=== PATIENT | female | born 1990 | race African-American/Black ===

== ENCOUNTER 2019-04-29 16:40 | Emergency (ER) | payer OTHER ==
[~2019-04-29] VITALS: Ht 170.2 cm; Wt 68.0 kg
[~2019-04-29 16:40] MED LIST: DOCU-299 PO; GABA400C PO; HYDR2TAB6 PO
[2019-04-29 16:59] VITALS: BP 100/81
--- NOTE | 2019-04-29 17:39 | NUR ---
Patient ambulated to bed 7
--- NOTE | 2019-04-29 17:52 | NUR ---
C/O LRQ ABD PAIN 9/10 & SHARP/STABBING AND NAUSEA X 2DAYS. PT DENIES VOMITING/DIARRHEA. LBM 04/29/19. PT HAS HX OF CYST REMOVAL FORM OVARY, D&C X2, , LYSIS OF ADHESION. 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 PER PT, IS ALLERGIC TO MORPHINE, KETORLAC, KLYRICA AND FALGYL. ER MD TO SEE THE PT. GAVE THE URINAL TO THE PT URINE COLLECETION. WILL CONTINUE TO MONITOR PT. HX: NONE RX: NONE
--- NOTE | 2019-04-29 18:27 | NUR ---
URINE CUP GIVEN TO PT. NOT ABLE TO URIANTE YET. OFFERED MORE WATER, DENIES. INFORMED HER THAT URNINE NEEDS TO BE COLLECETED. URINE CUP AT THE BEDSIDE.
[2019-04-29 19:01] LABS: EOSINOPHILS % (AUTO) 0.9 % (0.0-4.0); HEMATOCRIT 30.9 % (36-48); HEMOGLOBIN 9.7 g/dL (12.0-16.0); LYMPHOCYTES # (AUTO) 1.2 K/uL (2.5-16.5); LYMPHOCYTES % (AUTO) 36.9 % (20.5-51.1); MEAN CORPUSCULAR HEMOGLOBIN 25 pg (27-31); MEAN CORPUSCULAR HGB CONC 32 g/dL (33-37); MEAN CORPUSCULAR VOLUME 80.1 fL (80-94); MONOCYTES # (AUTO) 0.2 K/uL (0.8-1.0); NEUTROPHILS # (AUTO) 1.8 K/uL (1.8-7.7); NEUTROPHILS % (AUTO) 56.2 % (42.2-75.2); PLATELET COUNT (AUTO) 210 K/uL (140-450); RED BLOOD CELL COUNT(AUTO) 3.86 MIL/uL (4.20-5.40); RED CELL DISTRIBUTION WIDTH 19.1 % (11.6-13.7); WHITE BLOOD COUNT (AUTO) 3.2 K/uL (4.8-10.8)
[2019-04-29 19:02] LABS: APPEARANCE,URINE CLEAR (CLEAR); BILIRUBIN,URINE NEGATIVE (NEGATIVE); BLOOD, URINE NEGATIVE (NEGATIVE); COLOR,URINE YELLOW (YELLOW); LEUKOCYTE ESTERASE ,URINE NEGATIVE (NEGATIVE); NITRITE, URINE NEGATIVE (NEGATIVE); PH,URINE 5.5 (5.0-9.0); UGLUCOSE NEGATIVE (NEGATIVE)
--- NOTE | 2019-04-29 19:19 | NUR ---
TRIED IV TWICE, UNABLE TO START IV. TEJINDER BACK AWARE.BEDSIDE GIVEN TO TEJINDER BACK. PT IN SATBLE CONDITION.
--- NOTE | 2019-04-29 19:21 | NUR ---
RECEIVED REPORT FROM TEJINDER TORRES. PT IN STABLE CONDITION AT THIS TIME, WILL CONTINUE TO MONITOR CLOSELY.
[2019-04-29 19:23] LABS: ANION GAP 13.6 (8-16); CARBON DIOXIDE 23.1 mmol/L (21-32); CREATININE 0.7 mg/dL (0.6-1.3); POTASSIUM 3.7 mmol/L (3.5-5.1)
[2019-04-29 21:37] VITALS: BP 130/72
--- NOTE | 2019-04-29 21:37 | NUR ---
DISCHARGE PAPERS GIVEN TO PT. PT STATES 10 UNRELIEVED PAIN. PT DISCHARGE INSTRUCTIONS PROVIDED VERBALLY BY DR SANTIAGO. PT VERBALLIZED UNDERSTANDING OF DC INSTRUCTIONS. ALL QUESTIONS ANSWERED.
== END 2019-04-29 17:39 | disposition home or self-care (01) ==
LOC: MED 16:40
DX: R10.2 Pelvic and perineal pain (principal); K92.1 Melena; J45.909 Unspecified asthma, uncomplicated; Z88.5 Allergy status to narcotic agent; Z88.8 Allergy status to other drugs, medicaments and biological substances; Z79.899 Other long term (current) drug therapy; Z88.1 Allergy status to other antibiotic agents
CPT/HCPCS: 36415; 76830; 80053; 81003; 81025; 85025; 99284; Q0092

== ENCOUNTER 2019-09-22 01:18 | Emergency (ER) | payer OTHER ==
[~2019-09-22] VITALS: Ht 170.2 cm; Wt 69.9 kg
[2019-09-22 01:19] VITALS: BP 126/77
--- NOTE | 2019-09-22 01:31 | NUR ---
PT WENT TO RESTROOM AND AMBULATED TO BED #8
--- NOTE | 2019-09-22 01:45 | NUR ---
29 Y/O F PRESENTS TO ED WITH C/O LT BREAST PAIN X4 MONTHS. 3 SMALL PALPABLE LUMPS NOTED. TENDER TO TOUCH. PT REPORTS HAVING PCP APPOINTMENT OCTOBER 2019. NO DRAINAGE TO LT BREAST. PT PLACED IN GOWN. BEDRAIL X1 UP. WILL CONTINUE TO MONITOR.
--- NOTE | 2019-09-22 01:53 | NUR ---
Dr. George examining patient.
--- NOTE | 2019-09-22 02:08 | NUR ---
RAD AT BEDSIDE.
--- NOTE | 2019-09-22 02:30 | NUR ---
PASTER OPERATOR AT BEDSIDE. FEMALE CHAPERONED STERLING TINEO.
[2019-09-22 03:59] VITALS: BP 115/79
--- NOTE | 2019-09-22 04:00 | NUR ---
PT SEEN WITH EYES CLOSED. AROUSABLE TO LIGHT TOUCH. PT DENIES PAIN AT THIS TIME. PT REPORTS PAIN ONLY WHEN SITE IS TOUCHED.
--- NOTE | 2019-09-22 04:53 | NUR ---
PT DISCHARGED AND PAPERWORK PROVIDED. RX OF NAPROSYN GIVEN WITH MEDICATION SIDE EFFECTS EXPLAINED. PT VERBALIZED UNDERSTANDING. PT ADVISED TO F/U WITH PCP.
== END 2019-09-22 04:53 | disposition home or self-care (01) ==
LOC: MED 01:18
DX: N63.0 Unspecified lump in unspecified breast (principal); J45.909 Unspecified asthma, uncomplicated; I10 Essential (primary) hypertension; Z98.890 Other specified postprocedural states; Z79.899 Other long term (current) drug therapy; Z88.1 Allergy status to other antibiotic agents; Z88.5 Allergy status to narcotic agent; Z88.8 Allergy status to other drugs, medicaments and biological substances
CPT/HCPCS: 71045; 76641; 81002; 81025; 99284; Q0092

== ENCOUNTER 2019-11-15 14:06 | Emergency (ER) | payer OTHER ==
[~2019-11-15] VITALS: Ht 170.2 cm; Wt 2.5 kg
[2019-11-15 14:15] VITALS: BP 119/74
--- NOTE | 2019-11-15 14:22 | NUR ---
PT TO ER BED 8
--- NOTE | 2019-11-15 14:27 | NUR ---
29 YO FEMALE CO OF UPPER ABD PAIN FOR 2D. NO V/D BUT PT DOES COMPLAIN OF NAUSEA. BS ACTIVE IN ALL QUADS. PT IS GUARDED AND ABD IS SOFT AND NON DISTENDED. PT HAS NO MED HX. PT IS CURRENTLY LAYING IN BED WITH 1X RAIL UP FOR SAFETY.
[2019-11-15] MEDS ORDERED: fentaNYL 0.05 MG/ML VIAL IVP ONE (15:00)
[2019-11-15] MEDS ORDERED: ONDANSETRON 4 MG/2 ML VIAL IVP ONE (15:00)
[2019-11-15] MEDS ORDERED: fentaNYL 0.05 MG/ML VIAL IM ONE (15:55)
--- NOTE | 2019-11-15 16:06 | NUR ---
MEDS GIVEN IM PER MD, UNABLE TO OBTAIN IV ACCESS.
[2019-11-15 16:12] LABS: BASOPHILS % (AUTO) 1.1 % (0.0-2.0); EOSINOPHILS % (AUTO) 0.6 % (0.0-4.0); HEMATOCRIT 25.7 % (36-48); HEMOGLOBIN 7.7 g/dL (12.0-16.0); LYMPHOCYTES # (AUTO) 0.8 K/uL (2.5-16.5); MEAN CORPUSCULAR HEMOGLOBIN 21 pg (27-31); MEAN CORPUSCULAR HGB CONC 30 g/dL (33-37); MEAN CORPUSCULAR VOLUME 70.9 fL (80-94); MONOCYTES # (AUTO) 0.2 K/uL (0.8-1.0); MONOCYTES % (AUTO) 6.6 % (1.7-9.3); NEUTROPHILS # (AUTO) 1.9 K/uL (1.8-7.7); NEUTROPHILS % (AUTO) 64.7 % (42.2-75.2); PLATELET COUNT (AUTO) 195 K/uL (140-450); RED BLOOD CELL COUNT(AUTO) 3.63 MIL/uL (4.20-5.40); RED CELL DISTRIBUTION WIDTH 17.3 % (11.6-13.7)
[2019-11-15 16:32] LABS: ALBUMIN 3.9 g/dL (3.4-5.0); ANION GAP 14.1 (8-16); CARBON DIOXIDE 23.7 mmol/L (21-32); CREATININE 0.6 mg/dL (0.6-1.3); POTASSIUM 3.8 mmol/L (3.5-5.1); TOTAL BILIRUBIN 0.4 mg/dL (0.0-1.0)
--- NOTE | 2019-11-15 17:21 | NUR ---
PT SITTING UPRIGHT AWAKE AND ALERT. RR EVEN AND UNLABORED. VSS.
[2019-11-15 17:38] LABS: APPEARANCE,URINE CLEAR (CLEAR); BILIRUBIN,URINE NEGATIVE (NEGATIVE); BLOOD, URINE 2+ (NEGATIVE); COLOR,URINE YELLOW (YELLOW); LEUKOCYTE ESTERASE ,URINE NEGATIVE (NEGATIVE); NITRITE, URINE NEGATIVE (NEGATIVE); UGLUCOSE NEGATIVE (NEGATIVE)
[2019-11-15 17:53] LABS: WBC,URINE 0-5 /HPF (0-5)
[2019-11-15 18:09] VITALS: BP 119/76
--- NOTE | 2019-11-15 18:10 | NUR ---
Patient discharged with v/s stable. Written and verbal after care instructions given and explained. Patient verbalized understanding. Ambulatory with steady gait. All questions addressed prior to discharge. Advised to follow up with PMD.
== END 2019-11-15 18:10 | disposition home or self-care (01) ==
LOC: MED 14:06
DX: G89.29 Other chronic pain (principal); D64.9 Anemia, unspecified; R10.31 Right lower quadrant pain; J45.909 Unspecified asthma, uncomplicated; Z98.890 Other specified postprocedural states; Z79.899 Other long term (current) drug therapy; Z88.5 Allergy status to narcotic agent; Z88.8 Allergy status to other drugs, medicaments and biological substances; Z88.1 Allergy status to other antibiotic agents
CPT/HCPCS: 36415; 80053; 81001; 81025; 85025; 96372; 96374; 99284; J2405; J3010

== ENCOUNTER 2020-04-01 00:43 | Emergency (ER) | payer OTHER ==
[~2020-04-01] VITALS: Ht 170.2 cm; Wt 72.6 kg
[2020-04-01 01:19] VITALS: BP 135/83
--- NOTE | 2020-04-01 01:27 | NUR ---
Dr. Pelayo examining patient.
[2020-04-01] MEDS ORDERED: LIDOCAINE MPF 1% 10 MG/ML VIAL INJ ONE (01:30)
--- NOTE | 2020-04-01 01:30 | NUR ---
30 Y/O FEMALE PRESENTS TO ER WITH RIGHT THUMB PAIN X 2 WEEKS, S/P BITING NAIL. 0/10 PAIN. PT STATES SHE BIT THUMB NAIL, AND SKIN WAS TORN, AND THUMB BECAME INFECTED, INFLAMED, AND PUS. DENIES SOB, COUGH, FEVER, NAUSEA, VOMITING, DIARRHEA. VSS. R/R EQUAL, AND UNLABORED. SIDE RAIL X1, BED IN LOW POSITION, WILL CONTINUE TO MONITOR. ALLERGY: FLAGYLL; LYRICA PMH: ARRYTHMIA, PULMONARY EMBOLISM
[2020-04-01] MEDS ORDERED: LIDOCAINE/EPI 1% 1:100000 20 ML VIAL INJ ONE (01:36)
--- NOTE | 2020-04-01 01:37 | NUR ---
PT TAKEN TO BED 11
[2020-04-01 01:54] VITALS: BP 135/83
--- NOTE | 2020-04-01 01:54 | NUR ---
Patient discharged BY DR. BATISTA with v/s stable. Written and verbal after care instructions given and explained. Patient alert, oriented and verbalized understanding of instructions. Ambulatory with steady gait. All questions addressed BY DR. BATISTA prior to discharge. ID band removed. Patient advised to follow up with PMD. Rx of NAPROSYN, KEFLEX given. Patient educated on indication of medication including possible reaction and side effects BY DR. BATISTA. Opportunity to ask questions provided and answered BY DR. BATISTA.
== END 2020-04-01 01:54 | disposition home or self-care (01) ==
LOC: MED 00:43
DX: L03.011 Cellulitis of right finger (principal); J45.909 Unspecified asthma, uncomplicated; Z88.5 Allergy status to narcotic agent; Z88.6 Allergy status to analgesic agent; Z88.1 Allergy status to other antibiotic agents; Z88.8 Allergy status to other drugs, medicaments and biological substances; Z79.899 Other long term (current) drug therapy
CPT/HCPCS: 99283; J2001

== ENCOUNTER 2020-07-18 12:05 | Emergency (ER) | payer OTHER ==
[~2020-07-18] VITALS: Ht 170.2 cm; Wt 72.6 kg
[2020-07-18 12:08] VITALS: BP 130/86
--- NOTE | 2020-07-18 12:20 | NUR ---
Pt c/o R lower back pain / radiating to R pelvis/R thigh starting suddenly today. Pt denies injury, dysuria, constipation. Pt states lbm was yesterday and was "normal". Pt is ambulatory with steady gait. 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
[2020-07-18 12:43] VITALS: BP 128/84
[2020-07-19] MEDS ORDERED: FERR90TA IV (22:06)
[2020-07-19] MEDS ORDERED: FENT50TD45 TD (22:06)
== END 2020-07-18 12:44 | disposition home or self-care (01) ==
LOC: MED 12:05
DX: M54.41 Lumbago with sciatica, right side (principal); F17.210 Nicotine dependence, cigarettes, uncomplicated; I49.9 Cardiac arrhythmia, unspecified; I10 Essential (primary) hypertension; J45.909 Unspecified asthma, uncomplicated; Z88.1 Allergy status to other antibiotic agents; Z90.721 Acquired absence of ovaries, unilateral; Z88.8 Allergy status to other drugs, medicaments and biological substances; Z88.6 Allergy status to analgesic agent; Z79.899 Other long term (current) drug therapy
CPT/HCPCS: 99281

== ENCOUNTER 2021-03-15 08:41 | Day surgery (SDC) | payer OTHER, SELFPAY ==
[~2021-03-15] VITALS: Ht 172.7 cm; Wt 78.5 kg
[~2021-03-15 08:41] MED LIST changes: -DOCU-299 PO; +FENT50TD45 TD; +FERR90TA IV; +MAGN400S60 PO; +NAPR-54 PO; +ONDA2SOL45 PO; +PHE25I PO
[2021-03-15 09:27] LABS: EOSINOPHILS # (AUTO) 0.1 K/uL (0-0.4); EOSINOPHILS % (AUTO) 2.1 % (0.0-4.0); HEMATOCRIT 32.9 % (36-48); HEMOGLOBIN 10.1 g/dL (12.0-16.0); LYMPHOCYTES # (AUTO) 0.9 K/uL (2.5-16.5); LYMPHOCYTES % (AUTO) 35.6 % (20.5-51.1); MEAN CORPUSCULAR HEMOGLOBIN 24 pg (27-31); MEAN CORPUSCULAR HGB CONC 31 g/dL (33-37); MONOCYTES # (AUTO) 0.2 K/uL (0.8-1.0); NEUTROPHILS # (AUTO) 1.3 K/uL (1.8-7.7); NEUTROPHILS % (AUTO) 54.3 % (42.2-75.2); PLATELET COUNT (AUTO) 229 K/uL (140-450); RED BLOOD CELL COUNT(AUTO) 4.22 MIL/uL (4.20-5.40); RED CELL DISTRIBUTION WIDTH 22.7 % (11.6-13.7); WHITE BLOOD COUNT (AUTO) 2.5 K/uL (4.8-10.8)
[2021-03-15 09:28] LABS: APPEARANCE,URINE CLEAR (CLEAR); BILIRUBIN,URINE NEGATIVE (NEGATIVE); BLOOD, URINE NEGATIVE (NEGATIVE); COLOR,URINE YELLOW (YELLOW); LEUKOCYTE ESTERASE ,URINE NEGATIVE (NEGATIVE); NITRITE, URINE NEGATIVE (NEGATIVE); UGLUCOSE NEGATIVE (NEGATIVE)
[2021-03-15 10:04] LABS: ANION GAP 17.1 (8-16); CARBON DIOXIDE 20.9 mmol/L (21-32); CREATININE 0.7 mg/dL (0.6-1.3)
[2021-03-15 10:16] LABS: ALBUMIN 3.8 g/dL (3.4-5.0)
[2021-03-15] MEDS ORDERED: BUPIVACAINE-MPF/EPI 0.25% 30 ML VIAL INJ ONE (12:25)
[2021-03-15] MEDS ORDERED: diphenhydrAMINE 50 MG/ML VIAL IVP PRN (13:50)
[2021-03-15] MEDS ORDERED: MEPERIDINE 25 MG/ML SYR IVP PRN (13:50)
[2021-03-15] MEDS ORDERED: LACTATED RINGERS 1,000 ML IV SCH (13:50)
[2021-03-15] MEDS ORDERED: oxyCODONE/APAP 5/325 MG 1 TAB TAB PO PRN (13:50)
[2021-03-15] MEDS ORDERED: ONDANSETRON 4 MG/2 ML VIAL IVP PRN (13:50)
[2021-03-15] MEDS ORDERED: DEXAMETHASONE 4 MG/ML VIAL ONE (14:51)
[2021-03-15] MEDS ORDERED: METOCLOPRAMIDE 10 MG/2 ML INJ VIAL ONE (14:51)
[2021-03-15] MEDS ORDERED: LIDOCAINE MPF 2% 100 MG/5 ML VIAL INJ ONE (14:51)
[2021-03-15] MEDS ORDERED: PROPOFOL 200 MG/20 ML VIAL IV ONE (14:51)
[2021-03-15] MEDS ORDERED: SEVOFLURANE 250 ML BTL INH ONE (14:51)
[2021-03-15] MEDS ORDERED: fentaNYL citrate 0.05 MG/ML VIAL ONE (14:51)
[2021-03-15] MEDS ORDERED: NEOSTIGMINE 1:1000 10 MG/10 ML VIAL ONE (14:51)
[2021-03-15] MEDS ORDERED: ONDANSETRON 4 MG/2 ML VIAL ONE (14:51)
[2021-03-15] MEDS ORDERED: KETOROLAC 30 MG/ML VIAL ONE (14:51)
[2021-03-15] MEDS ORDERED: MEPERIDINE 25 MG/ML SYR ONE (14:51)
[2021-03-15] MEDS ORDERED: ROCURONIUM 50 MG/5 ML VIAL IV ONE (14:51)
[2021-03-15] MEDS ORDERED: SUCCINYLCHOLINE CHLORIDE 200 MG/10 ML VIAL IVP ONE (14:51)
[2021-03-15] MEDS ORDERED: GLYCOPYRROLATE 0.2 MG/ML VIAL ONE (14:51)
[2021-03-15] MEDS ORDERED: LORazepam 2 MG/ML VIAL IVP PRN (16:00)
[2021-03-15] MEDS: fentaNYL citrate 0.05 MG/ML VIAL IVP PRN ×4 (16:08→16:38)
[2021-03-15] MEDS ORDERED: diphenhydrAMINE 50 MG/ML VIAL IVP ONE (16:50)
[2021-03-15] MEDS ORDERED: diphenhydrAMINE 50 MG/ML VIAL IVP SCH (16:53)
--- NOTE | 2021-03-15 17:00 | NUR ---
Patient transferred to room 106A. Received report from OR nurse Theresa.
--- NOTE | 2021-03-15 17:55 | NUR ---
Patient discharged at this time. Left hand IV 24G discontinued, cannula intact, site covered with dry gauze and tape. All belongings with patient upon departure. Patient's waiting in front lobby with private transport.
== END 2021-03-15 17:55 | disposition home or self-care (01) ==
LOC: MDS 08:41 → MMU 08:41 → MDS 17:55
PROVIDERS: ATTEND Obstetrics & Gynecology
DX: N80.3 Endometriosis of pelvic peritoneum (principal); Z88.8 Allergy status to other drugs, medicaments and biological substances; Z79.899 Other long term (current) drug therapy; Z20.822 Contact with and (suspected) exposure to COVID-19
CPT/HCPCS: 36415; 58662; 80053; 81003; 81025; 85025; 86886; 86900; 86901; 87086; J0330; J1100; J1200; J1885; J2001; J2060; J2175; J2405; J2704; J2710; J2765; J3010; J3490; J7030; J7120; U0003

== ENCOUNTER 2021-05-08 09:52 | Emergency (ER) | payer OTHER, SELFPAY ==
[~2021-05-08] VITALS: Ht 172.7 cm; Wt 78.9 kg
[2021-05-08 10:10] VITALS: BP 133/100
--- NOTE | 2021-05-08 11:00 | NUR ---
Patient ambulated to bed 4 with a steady gait.
--- NOTE | 2021-05-08 11:08 | NUR ---
dr. zhong bedside evaluating pt
[2021-05-08] MEDS ORDERED: KETOROLAC 30 MG/ML VIAL IVP ONE (11:15)
--- NOTE | 2021-05-08 11:15 | NUR ---
31 Y/O F BIB UBER FROM HOME, C/O ABD PAIN BILATERAL LOWER QUADRANTS FOR 3 DAYS. DENIES N/V/D, SOB, COUGH, FEVERS, OR CP. DENIES DYSURIA, HEMATURIA. LAST BM: THIS MORNING, SOFT AND EASY TO PASS. PMH: ENDOMETRIOSIS ALLERGY: METRONIDAZOLE, PREGABLIN (HIVES) MED: DENIES
--- NOTE | 2021-05-08 11:43 | NUR ---
ELECTRONICS HARDWARE DESIGN ENGINEER ZULEMA BEDSIDE COLLECTING BLOOD WORK FROM PT
[2021-05-08] MEDS ORDERED: KETOROLAC 60 MG/2 ML VIAL IM ONE (12:00)
--- NOTE | 2021-05-08 12:20 | NUR ---
US CURRENTLY BEDSIDE WITH PT
[2021-05-08 12:48] LABS: BASOPHILS % (AUTO) 0.1 % (0.0-2.0); HEMATOCRIT 37.3 % (36-48); HEMOGLOBIN 11.9 g/dL (12.0-16.0); LYMPHOCYTES # (AUTO) 1.1 K/uL (2.5-16.5); LYMPHOCYTES % (AUTO) 14.7 % (20.5-51.1); MEAN CORPUSCULAR HEMOGLOBIN 26 pg (27-31); MEAN CORPUSCULAR HGB CONC 32 g/dL (33-37); MEAN CORPUSCULAR VOLUME 82.5 fL (80-94); MONOCYTES # (AUTO) 0.3 K/uL (0.8-1.0); MONOCYTES % (AUTO) 3.8 % (1.7-9.3); NEUTROPHILS # (AUTO) 6.3 K/uL (1.8-7.7); NEUTROPHILS % (AUTO) 81.4 % (42.2-75.2); PLATELET COUNT (AUTO) 263 K/uL (140-450); RED BLOOD CELL COUNT(AUTO) 4.53 MIL/uL (4.20-5.40); WHITE BLOOD COUNT (AUTO) 7.7 K/uL (4.8-10.8)
[2021-05-08 12:52] LABS: ALBUMIN 3.7 g/dL (3.4-5.0); ANION GAP 11.8 (8-16); CARBON DIOXIDE 24.8 mmol/L (21-32); CREATININE 0.7 mg/dL (0.6-1.3); POTASSIUM 3.6 mmol/L (3.5-5.1); TOTAL BILIRUBIN 0.6 mg/dL (0.0-1.0)
[2021-05-08] MEDS ORDERED: MORPHINE SULFATE 10 MG/ML VIAL IM ONE (13:10)
[2021-05-08] MEDS ORDERED: ONDANSETRON 4 MG ODT PO ONE (13:10)
--- NOTE | 2021-05-08 14:21 | NUR ---
PT CURRENTLY IN POSITION DUE TO PAIN. BED IN LOWEST POSITION CURRENTLY WITH SIDERAIL X1 UP. VITAL SIGNS STABLE. WILL CONTINUE TO MONITOR
--- NOTE | 2021-05-08 14:42 | NUR ---
Dr. Yoo at the bedside evaluating patient.
--- NOTE | 2021-05-08 14:44 | NUR ---
Max elder in [facility] - 05/08/21 at [email or web address] HUGGINS BEDSIDE EVALUATING PT
[2021-05-08] MEDS ORDERED: HYDROmorphone PFS 2 MG/ML SYR IVP ONE (14:50)
--- NOTE | 2021-05-08 15:15 | NUR ---
PT GIVEN 4 HOTPACKS TO HELP WITH ABDOMINAL PAIN
--- NOTE | 2021-05-08 16:23 | NUR ---
PT CURRENTLY IN POSITION DUE TO PAIN 07/14. HOT PACKS PROVIDED NO RELIEF TO PT. VITAL SIGNS STABLE. BED IN LOWEST POSITION WITH SIDERAIL X1 UP. PT ON MONITOR. MD MADE AWARE OF PT CURRENT STATUS
[2021-05-08] MEDS ORDERED: MORPHINE SULFATE 4 MG/ML SYR IVP ONE (17:00)
[2021-05-08] MEDS ORDERED: LORazepam 1 MG TAB PO ONE (17:00)
[2021-05-08] MEDS ORDERED: KETAMINE 10 MG/ML UD SYR **ER IVP ONE (17:45)
[2021-05-08] MEDS ORDERED: HALOPERIDOL IM 5 MG/ML VIAL IVP ONE (17:55)
--- NOTE | 2021-05-08 18:06 | NUR ---
PT IV NO LONGER ABLE TO BE USED. PA WOMACK BEDSIDE WITH UA ATTEMPTING ANOTHER IV
--- NOTE | 2021-05-08 18:30 | NUR ---
PT CURRENTLY RESTING ON SIDE CRYING FROM PAIN. VITAL SIGNS ARE CURRENTLY STABLE AND PAIN MEDICATION HAS BEEN GIVEN. BED IN LOWEST POSITION WITH SIDERAIL X1 UP. WILL CONTINUE TO MONITOR
--- NOTE | 2021-05-08 18:52 | NUR ---
PT CURRENTLY SLEEPING BEDSIDE WITH EYES CLOSED
--- NOTE | 2021-05-08 19:33 | NUR ---
Pt report given to TEJINDER WOODSON. Transfer of care at this time.
--- NOTE | 2021-05-08 19:49 | NUR ---
PT. IN BALL POSITION LAYING COMFORTABLY IN BED, VOICES NO COMPLAINTS AT THIS TIME.
[2021-05-08] MEDS ORDERED: OXYC1TAB PO (20:05)
[2021-05-08 21:11] VITALS: BP 134/97
== END 2021-05-08 21:11 | disposition home or self-care (01) ==
LOC: MED 09:52
DX: N80.9 Endometriosis, unspecified (principal); R10.9 Unspecified abdominal pain; R11.0 Nausea; J45.909 Unspecified asthma, uncomplicated; I10 Essential (primary) hypertension; Z87.442 Personal history of urinary calculi; Z98.890 Other specified postprocedural states; Z79.899 Other long term (current) drug therapy; Z88.8 Allergy status to other drugs, medicaments and biological substances
CPT/HCPCS: 36415; 74176; 76830; 80053; 81002; 81025; 85025; 93976; 96372; 96374; 96375; 99285; J1170; J1630; J1885; J2270; Q0162

== ENCOUNTER 2021-12-09 05:46 | Day surgery (SDC) | payer OTHER ==
[~2021-12-09] VITALS: Ht 172.7 cm; Wt 80.3 kg
[2021-12-09] MEDS ORDERED: BUPIVACAINE-MPF 0.25% 30 ML VIAL INJ ONE (07:18)
[2021-12-09] MEDS ORDERED: fentaNYL citrate 0.05 MG/ML VIAL ONE (07:21)
[2021-12-09] MEDS ORDERED: PROPOFOL 200 MG/20 ML VIAL IV ONE (07:25)
[2021-12-09] MEDS ORDERED: SEVOFLURANE 250 ML BTL INH ONE (07:45)
[2021-12-09] MEDS ORDERED: ONDANSETRON 4 MG/2 ML VIAL ONE (08:01)
[2021-12-09] MEDS ORDERED: DEXAMETHASONE 4 MG/ML VIAL ONE (08:01)
[2021-12-09] MEDS ORDERED: MEPERIDINE 50 MG/ML SYR ONE (08:03)
[2021-12-09] MEDS ORDERED: diphenhydrAMINE 50 MG/ML VIAL IVP PRN ×2 (08:35→08:45)
[2021-12-09] MEDS ORDERED: ONDANSETRON 4 MG/2 ML VIAL IVP PRN ×2 (08:35→08:45)
[2021-12-09] MEDS ORDERED: oxyCODONE/APAP 5/325 MG 1 TAB TAB PO PRN (08:35)
[2021-12-09] MEDS ORDERED: MEPERIDINE 25 MG/ML SYR IVP PRN (08:45)
[2021-12-09] MEDS ORDERED: LACTATED RINGERS 1,000 ML IV SCH (08:45)
[2021-12-09] MEDS: HYDROmorphone 1 MG/ML AMP IVP PRN ×4 (09:10→09:40)
[2021-12-09] MEDS ORDERED: HYDROmorphone PFS 2 MG/ML SYR ONE (09:14)
[2021-12-09] MEDS ORDERED: oxyCODONE/APAP 5/325 MG 1 TAB TAB PO ONE (10:19)
== END 2021-12-09 11:35 | disposition home or self-care (01) ==
LOC: MDS 05:46 → MMU 05:48 → MDS 11:35
PROVIDERS: ATTEND Obstetrics & Gynecology
DX: N93.9 Abnormal uterine and vaginal bleeding, unspecified (principal); D25.9 Leiomyoma of uterus, unspecified; Z20.822 Contact with and (suspected) exposure to COVID-19
CPT/HCPCS: 36415; 58558; 86886; 86900; 86901; 87426; J1100; J1170; J2175; J2405; J2704; J3010; J3490

== ENCOUNTER 2023-03-19 15:59 | Inpatient (IN) | payer OTHER ==
[~2023-03-19] VITALS: Ht 172.7 cm; Wt 79.8 kg
[2023-03-19] VITALS (7 sets, daily range): BP systolic 142–143; BP diastolic 89–105; PULSE 75–83; RESP 15–20; TEMP 97–97.1; O2SAT 97–100
--- NOTE | 2023-03-19 16:29 | NUR ---
PT AMB TO BED 9
[2023-03-19 16:45] LABS: APPEARANCE,URINE CLEAR (CLEAR); BILIRUBIN,URINE NEGATIVE (NEGATIVE); BLOOD, URINE 3+ (NEGATIVE); COLOR,URINE YELLOW (YELLOW); LEUKOCYTE ESTERASE ,URINE NEGATIVE (NEGATIVE); NITRITE, URINE NEGATIVE (NEGATIVE); PH,URINE 8.5 (5.0-9.0); UGLUCOSE NEGATIVE (NEGATIVE)
--- NOTE | 2023-03-19 16:45 | NUR ---
33YO FEMALE PT C/O VAGINAL BLEEDING AND STABBING PELVIC PAIN X2DAYS. REPORTS HEAVY FLOW "TOO MANY PADS TOO COUNT" DENIES CLOTS. STATES BEING RECOMMENDED BY OBGYN TO COME TO ER , UNABLE TO RECALL REASON "HE SAID I NEEDED EMERGENCY SURGERY ". DENIES N/V/D, DIZZINESS,CHEST PAIN, SOB OR RELIEF AFTER MOTRIN. PT AAOX4, HOB POSITIONED PER COMFORT HX:DENIES ALLERGIES: ANA RUDOLPH
--- NOTE | 2023-03-19 16:45 | NUR ---
us at bedside
[2023-03-19 17:01] LABS: BASOPHILS % (AUTO) 1.1 % (0.0-2.0); EOSINOPHILS # (AUTO) 0.1 K/uL (0-0.4); EOSINOPHILS % (AUTO) 4.4 % (0.0-4.0); HEMATOCRIT 34.1 % (36-48); HEMOGLOBIN 11.4 g/dL (12.0-16.0); LYMPHOCYTES # (AUTO) 1.6 K/uL (2.5-16.5); LYMPHOCYTES % (AUTO) 48.3 % (20.5-51.1); MEAN CORPUSCULAR HEMOGLOBIN 30 pg (27-31); MEAN CORPUSCULAR HGB CONC 33 g/dL (33-37); MEAN CORPUSCULAR VOLUME 89.8 fL (80-94); MONOCYTES # (AUTO) 0.2 K/uL (0.8-1.0); MONOCYTES % (AUTO) 7.2 % (1.7-9.3); NEUTROPHILS # (AUTO) 1.3 K/uL (1.8-7.7); PLATELET COUNT (AUTO) 174 K/uL (140-450); RED CELL DISTRIBUTION WIDTH 14.9 % (11.6-13.7); WHITE BLOOD COUNT (AUTO) 3.3 K/uL (4.8-10.8)
[2023-03-19 17:03] LABS: RBC,URINE 20-50 /HPF (0-5); RED BLOOD CELL CASTS,URINE 0-10 /LPF (None Seen); URINE AMORPHOUS URATE 3+ /HPF (None Seen); YEAST,URINE None Seen /HPF (None Seen)
[2023-03-19 17:28] LABS: ANION GAP 10.8 (8-16); CARBON DIOXIDE 26.5 mmol/L (21-32); CREATININE 0.6 mg/dL (0.6-1.3); POTASSIUM 4.3 mmol/L (3.5-5.1)
[2023-03-19 17:32] LABS: PROTHROMBIN TIME 10.9 secs (10.8-13.4)
[2023-03-19] MEDS ORDERED: KETOROLAC 30 MG/ML VIAL IVP ONE (18:30)
[2023-03-19] MEDS ORDERED: NACL 0.9% 1,000 ML IV ONE (18:30)
[2023-03-19] MEDS ORDERED: ESTROGENS CONJUGATED 25 MG INJ VIAL IVP ONE (18:30)
--- NOTE | 2023-03-19 19:00 | NUR ---
UNSUCCESSFUL US GUIDED IV BY RN. MADE AWARE.
--- NOTE | 2023-03-19 19:17 | NUR ---
REPORT GIVEN TO PAOLA RN. TRANSFER OF CARE AT THIS TIME
--- NOTE | 2023-03-19 19:43 | NUR ---
attempted to start IV lines twice. unsuccesful at this time. per pt does not want medications unless it's through IV. ER made aware.
--- NOTE | 2023-03-19 19:52 | NUR ---
Dr. Barksdale at bedside
[2023-03-19] MEDS ORDERED: KCL 20 MEQ IN 100 mL PREMIX 200 ML IV PRN (20:25)
[2023-03-19] MEDS ORDERED: POTASSIUM CHLORIDE 10 MEQ TABER PO PRN (20:25)
[2023-03-19] MEDS ORDERED: HYDROcodone/APAP 5/325 MG 1 TAB TAB PO PRN (20:25)
[2023-03-19] MEDS ORDERED: ACETAMINOPHEN 325 MG TAB PO PRN (20:25)
[2023-03-19] MEDS ORDERED: MAGNESIUM OXIDE 400 MG TAB PO PRN (20:25)
--- NOTE | 2023-03-19 21:57 | NUR ---
RIVKA r Addendum: 03/19/23 at 2251 by [email or web address] 21:57 RIVKA PIC LINE RN WILL ARRIVE BEFORE OR A LITTLE AFTER MIDNIGHT. PT MADE AWARE AND RN MADE AWARE
--- NOTE | 2023-03-19 22:36 | NUR ---
Patient will be admitted to care of Molly PALM. Admited to Med/Surg. Will go to room 119a. Belongings list completed. Report to Mai MARR.
[2023-03-20] MEDS ORDERED: KETOROLAC 30 MG/ML VIAL ONE (01:15)
[2023-03-20] MEDS ORDERED: ESTROGENS CONJUGATED 25 MG INJ VIAL ONE (01:18)
[2023-03-20] MEDS ORDERED: WATER STERILE 10 ML MC ONE (01:35)
[2023-03-20] MEDS: MORPHINE SULFATE 2 MG/ML SYR IVP PRN ×4 (03:07→17:57)
[2023-03-20 04:00] VITALS: BP 125/86; PULSE 72; RESP 18; TEMP 97.9; O2SAT 100
[2023-03-20 05:37] LABS: BASOPHILS % (AUTO) 0.7 % (0.0-2.0); EOSINOPHILS # (AUTO) 0.1 K/uL (0-0.4); EOSINOPHILS % (AUTO) 3.9 % (0.0-4.0); HEMATOCRIT 32.1 % (36-48); HEMOGLOBIN 10.5 g/dL (12.0-16.0); LYMPHOCYTES # (AUTO) 1.5 K/uL (2.5-16.5); LYMPHOCYTES % (AUTO) 54.7 % (20.5-51.1); MEAN CORPUSCULAR HEMOGLOBIN 30 pg (27-31); MEAN CORPUSCULAR HGB CONC 33 g/dL (33-37); MEAN CORPUSCULAR VOLUME 90.3 fL (80-94); MONOCYTES # (AUTO) 0.2 K/uL (0.8-1.0); MONOCYTES % (AUTO) 6.4 % (1.7-9.3); NEUTROPHILS # (AUTO) 0.9 K/uL (1.8-7.7); NEUTROPHILS % (AUTO) 34.3 % (42.2-75.2); PLATELET COUNT (AUTO) 166 K/uL (140-450); RED BLOOD CELL COUNT(AUTO) 3.56 MIL/uL (4.20-5.40); RED CELL DISTRIBUTION WIDTH 14.9 % (11.6-13.7); WHITE BLOOD COUNT (AUTO) 2.8 K/uL (4.8-10.8)
--- NOTE | 2023-03-20 07:26 | NUR ---
RECEIVED REPORT FROM INVESTIGATION DIVISION SERGEANT NURSE FOR CONTINUITY OF CARE. PT IS AWAKE, NO SIGN OF DISTRESS. CALL LIGHT WITHIN REACH.
[2023-03-20 08:00] VITALS: PULSE 68; RESP 18; O2SAT 100
[2023-03-20 09:01] LABS: ALBUMIN 3.2 g/dL (3.4-5.0); ANION GAP 13.8 (8-16); CARBON DIOXIDE 23.8 mmol/L (21-32); CREATININE 0.6 mg/dL (0.6-1.3); MAGNESIUM 1.8 mg/dL (1.8-2.4); POTASSIUM 3.6 mmol/L (3.5-5.1); TOTAL BILIRUBIN 0.8 mg/dL (0.0-1.0)
--- NOTE | 2023-03-20 09:05 | NUR ---
PATIENT HAS BEEN SCREENED AND CATEGORIZED LOW NUTRITION RISK. PATIENT WILL BE SEEN WITHIN 7 DAYS OF ADMISSION. 03/26/[address]
[2023-03-20 16:00] VITALS: BP 126/80; PULSE 70; RESP 18; TEMP 98.4; O2SAT 100
--- NOTE | 2023-03-20 19:15 | NUR ---
ENDORSED PT TO BATTERYMAN NURSE FOR CONTINUITY OF CARE. PT IS AWAKE AND STABLE, NO SIGNS OF DISTRESS. CALL LIGHT WITHIN REACH.
[2023-03-20 20:00] VITALS: BP 134/90; PULSE 82; RESP 18; TEMP 97.6; O2SAT 99
--- NOTE | 2023-03-20 20:45 | NUR ---
PATIENT COMPLAINED OF SEVERE ABDOMINAL PAIN RADIATING AT THE BACK. PATIENT IS REQUESTING A STRONGER PAIN MEDS. PER PATIENT MORPHINE 2 MG IS NOT WORKING. NOTIFIED DR. JACKMAN WITH ORDERS NOTED CARRIED OUT.
--- NOTE | 2023-03-20 21:08 | NUR ---
PATIENT STILL WITH VAGINAL BLEEDING. DR. JACKMAN MADE AWARE. INFORMED PATIENT TO WAIT FOR DR. TOLEDO TO SEE HER.
[2023-03-20] MEDS: MORPHINE SULFATE 4 MG/ML SYR IVP PRN (22:16)
[2023-03-21] MEDS: oxyCODONE/APAP 5/325 MG 1 TAB TAB PO PRN ×3 (01:24→20:21)
[2023-03-21 04:00] VITALS: BP 122/76; PULSE 78; RESP 18; TEMP 97.2; O2SAT 99
[2023-03-21 07:15] LABS: BASOPHILS % (AUTO) 0.5 % (0.0-2.0); EOSINOPHILS # (AUTO) 0.1 K/uL (0-0.4); EOSINOPHILS % (AUTO) 1.5 % (0.0-4.0); HEMATOCRIT 31.2 % (36-48); HEMOGLOBIN 10.5 g/dL (12.0-16.0); LYMPHOCYTES % (AUTO) 26.7 % (20.5-51.1); MEAN CORPUSCULAR HEMOGLOBIN 30 pg (27-31); MEAN CORPUSCULAR HGB CONC 34 g/dL (33-37); MEAN CORPUSCULAR VOLUME 90.2 fL (80-94); MONOCYTES # (AUTO) 0.2 K/uL (0.8-1.0); MONOCYTES % (AUTO) 4.2 % (1.7-9.3); NEUTROPHILS # (AUTO) 2.5 K/uL (1.8-7.7); NEUTROPHILS % (AUTO) 67.1 % (42.2-75.2); PLATELET COUNT (AUTO) 144 K/uL (140-450); RED BLOOD CELL COUNT(AUTO) 3.46 MIL/uL (4.20-5.40); RED CELL DISTRIBUTION WIDTH 14.7 % (11.6-13.7); WHITE BLOOD COUNT (AUTO) 3.7 K/uL (4.8-10.8)
--- NOTE | 2023-03-21 07:15 | NUR ---
RECIEVED REPORT FROM PREPLEATER NURSE FOR CONTINUITY OF CARE. PT IS STABLE. CALL LIGHT WITHIN REACH.
[2023-03-21 07:28] LABS: ALBUMIN 2.9 g/dL (3.4-5.0); ANION GAP 11.8 (8-16); CARBON DIOXIDE 25.8 mmol/L (21-32); CREATININE 0.7 mg/dL (0.6-1.3); MAGNESIUM 1.5 mg/dL (1.8-2.4); POTASSIUM 3.6 mmol/L (3.5-5.1); TOTAL BILIRUBIN 0.8 mg/dL (0.0-1.0)
[2023-03-21 08:00] VITALS: PULSE 77; RESP 17; O2SAT 99
[2023-03-21] MEDS: MORPHINE SULFATE 4 MG/ML SYR IVP PRN ×3 (08:36→22:12)
[2023-03-21] MEDS: MAG SULF 2000 MG/WATER PREMIX 50 ML IV PRN (08:55)
[2023-03-21] MEDS: medroxyPROGESTERone 10 MG TAB PO SCH (11:43)
[2023-03-21] MEDS: ESTROGENS CONJUGATED 25 MG INJ VIAL IV SCH (12:00)
--- NOTE | 2023-03-21 19:31 | NUR ---
ENDORSED TO HOT DIE PRESS FEEDER NURSE FOR CONTINUITY OF CARE. PT IS STABLE. CALL LIGHT WITHIN REACH.
[2023-03-21 20:00] VITALS: BP 111/70; PULSE 85; RESP 18; TEMP 98.1; O2SAT 95
[2023-03-21 20:02] VITALS: PULSE 77; RESP 17; O2SAT 99
--- NOTE | 2023-03-21 20:21 | NUR ---
PATIENT COMPLAINING OF 8/10 PAIN IN PELVIC REGION. PERCOCET PO ADMINISTERED PRN PER MD ORDER, PT TOLERATED WELL. WILL REASSESS PAIN LEVEL IN ONE HOUR.
--- NOTE | 2023-03-21 20:28 | NUR ---
Patient's Plan of Care was discussed and reviewed with ADOLESCENT SPECIALIST: JAY
--- NOTE | 2023-03-21 21:21 | NUR ---
PT STILL COMPLAINING OF 8/10 PAIN UPON REASSESSMENT. INSTRUCTED PATIENT TO REPOSITION IN A POSITION TO HELP REDUCE PAIN. WILL CONTINUE TO MONITOR THE PATIENT.
[2023-03-22] MEDS: oxyCODONE/APAP 5/325 MG 1 TAB TAB PO PRN ×4 (02:25→21:58)
--- NOTE | 2023-03-22 02:26 | NUR ---
PT COMPLAINING OF 9/10 PAIN IN PELVIC REGION. ADMINISTERED PERCOCET PRN PER MD ORDER, WILL REASSESS PAIN LEVEL IN ONE HOUR.
--- NOTE | 2023-03-22 03:48 | NUR ---
PT WITH A TEMPERATURE OF 100.8. TYLENOL ADMINISTERED PRN FOR FEVER, WILL CLOSELY MONITOR THE PT.
[2023-03-22 04:00] VITALS: BP 101/61; PULSE 73; RESP 18; TEMP 100.8; O2SAT 97
--- NOTE | 2023-03-22 05:43 | NUR ---
REASSESSED PATIENTS TEMPERATURE. CURRENT TEMPERATURE IS 97.5. WILL CONTINUE MONITORING THE PATIENT.
[2023-03-22 07:02] LABS: BASOPHILS % (AUTO) 0.1 % (0.0-2.0); EOSINOPHILS % (AUTO) 0.1 % (0.0-4.0); HEMATOCRIT 31.5 % (36-48); HEMOGLOBIN 10.6 g/dL (12.0-16.0); LYMPHOCYTES # (AUTO) 0.2 K/uL (2.5-16.5); MEAN CORPUSCULAR HEMOGLOBIN 30 pg (27-31); MEAN CORPUSCULAR HGB CONC 34 g/dL (33-37); MEAN CORPUSCULAR VOLUME 88.9 fL (80-94); MONOCYTES # (AUTO) 0.1 K/uL (0.8-1.0); MONOCYTES % (AUTO) 3.3 % (1.7-9.3); NEUTROPHILS # (AUTO) 3.6 K/uL (1.8-7.7); PLATELET COUNT (AUTO) 108 K/uL (140-450); RED BLOOD CELL COUNT(AUTO) 3.54 MIL/uL (4.20-5.40); RED CELL DISTRIBUTION WIDTH 14.8 % (11.6-13.7); WHITE BLOOD COUNT (AUTO) 3.9 K/uL (4.8-10.8)
--- NOTE | 2023-03-22 07:20 | NUR ---
RECEIVED REPORT FROM CDL FLATBED TRUCK DRIVER FOR CONTINUITY OF CARE. ALERT AND ORIENTED X 4. RESP. EVEN AND UNLABORED. ON ROOM AIR. NO C/O PAIN OR DISCOMFORT. CALL LIGHT KEPT WITHIN REACH. PT WILL MONITOR CLOSELY.
--- NOTE | 2023-03-22 07:27 | NUR ---
PT REPORTING A PAIN LEVEL OF 2/10 AT THIS TIME. ENDORSED TO DAY SHIFT NURSE FOR CONTINUITY OF CARE.
[2023-03-22 07:29] LABS: ALBUMIN 2.9 g/dL (3.4-5.0); ANION GAP 11.6 (8-16); CARBON DIOXIDE 23.8 mmol/L (21-32); CREATININE 0.7 mg/dL (0.6-1.3); MAGNESIUM 1.4 mg/dL (1.8-2.4); POTASSIUM 3.4 mmol/L (3.5-5.1); TOTAL BILIRUBIN 1.2 mg/dL (0.0-1.0)
[2023-03-22 07:37] LABS: LYMPHOCYTES % (AUTO) 4.9 % (20.5-51.1); NEUTROPHILS % (AUTO) 91.6 % (42.2-75.2)
[2023-03-22 08:00] VITALS: BP 99/63; PULSE 75; PULSE 90; RESP 18; RESP 19; TEMP 97.5; O2SAT 97; O2SAT 99
--- NOTE | 2023-03-22 08:00 | NUR ---
Patient's Plan of Care was discussed and reviewed with SOFTWARE COMPUTER SPECIALIST: Vanessa
--- NOTE | 2023-03-22 09:20 | NUR ---
PRN K DUR WAS GIVEN. TOLERATED WELL.
[2023-03-22] MEDS: medroxyPROGESTERone 10 MG TAB PO SCH (09:21)
--- NOTE | 2023-03-22 09:26 | NUR ---
SCHEDULED MEDICATIONS AND PRN PERCOCET FOR PAIN MANAGEMENT WAS GIVEN. TOLERATED WELL.
[2023-03-22] MEDS: ESTROGENS CONJUGATED 25 MG INJ VIAL IV SCH (10:19)
--- NOTE | 2023-03-22 10:20 | NUR ---
PREMARIN IVP AND ROCEPHIN IV WAS GIVEN BY HAYDEN MARR. TOLERATED WELL.
[2023-03-22] MEDS: MAG SULF 2000 MG/WATER PREMIX 50 ML IV PRN (12:54)
--- NOTE | 2023-03-22 12:54 | NUR ---
MAG DESAIER WAS GIVEN BY HAYDEN MARR. TOLERATED WELL.
[2023-03-22] MEDS: ONDANSETRON 4 MG/2 ML VIAL IVP PRN ×2 (13:43→22:08)
--- NOTE | 2023-03-22 13:43 | NUR ---
NOTED VOMITING 1X, PRN ZOFRAN IVP GIVEN BY JOHNSON MARR. TOLERATED WELL.
--- NOTE | 2023-03-22 14:40 | NUR ---
URINE COLLECTED. SEND TO LAB.
[2023-03-22 15:13] LABS: APPEARANCE,URINE CLEAR (CLEAR); BILIRUBIN,URINE 1+ (NEGATIVE); BLOOD, URINE NEGATIVE (NEGATIVE); COLOR,URINE YELLOW (YELLOW); LEUKOCYTE ESTERASE ,URINE NEGATIVE (NEGATIVE); NITRITE, URINE NEGATIVE (NEGATIVE); PH,URINE 6.5 (5.0-9.0); UGLUCOSE TRACE (NEGATIVE)
--- NOTE | 2023-03-22 18:00 | NUR ---
DINNER SERVED. PER PT STILL NOTED BLEEDING WHEN SHE VOIDED. PT WILL MONITOR CLOSELY.
--- NOTE | 2023-03-22 19:17 | NUR ---
BEDSIDE REPORT GIVEN TO SUPERVISOR TANK STORAGE FOR CONTINUITY OF CARE. REMAINS STABLE.
--- NOTE | 2023-03-22 19:31 | NUR ---
RECEIVED REPORT FROM DAY SHIFT NURSE FOR CONTINUITY OF CARE. PATIENT IS AWAKE, STATES NO PAIN AT THIS TIME. STILL STABLE ON ROOM AIR SATING AT 99%. DISCUSSED POC AND GOALS FOR TONIGHT. PT VERBALIZED UNDERSTANDING TO USE CALL LIGHT FOR ANY ASSISTANCE NEEDED. WILL MAKE FREQUENT ROUNDS THROUGHOUT SHIFT.
[2023-03-22 20:00] VITALS: BP 99/62; PULSE 90; RESP 18; RESP 19; TEMP 97; O2SAT 99
--- NOTE | 2023-03-22 21:58 | NUR ---
PATIENT STATES A PAIN LEVEL OF 8/10 IN PELVIC REGION. INSTRUCTED PATIENT TO REPOSITION IN A POSITION AND FLEX HER ABDOMEN. PATIENT STATED THIS ONLY RELIEVES THE PAIN A SMALL AMOUNT. ADMINISTERED PERCOCET 5/325 MG PO PRN TO PATIENT FOR A PAIN LEVEL OF 8/10. PT TOLERATED WELL. PT ALSO REQUESTED ZOFRAN SHE WAS EXPERIENCING SOME NAUSEA. ZOFRAN WAS ADMINISTERED BY CHARGE NURSE: PEGGY. WILL REASSESS PATIENTS PAIN LEVEL IN ONE HOUR.
--- NOTE | 2023-03-22 22:17 | NUR ---
Patient's Plan of Care was discussed and reviewed with BASKET PERSON: SHERRI VALVERDE
--- NOTE | 2023-03-22 22:58 | NUR ---
REASSESSED PATIENTS PAIN LEVEL. PATIENT SLEEPING AT THIS TIME. NO GRIMACING OR SIGNS OF DISTRESS/DISCOMFORT NOTED. FLACC SCORE = 0. WILL CONTINUE FREQUENT ROUNDING.
--- NOTE | 2023-03-23 02:30 | NUR ---
PATIENT ASLEEP AT THIS TIME. CHEST RISE AND FALL NOTED. RESPIRATIONS UNLABORED. NO PHYSICAL SIGNS OF PAIN/DISCOMFORT NOTED. WILL CONTINUE TO MONITOR THE PATIENT.
[2023-03-23 04:00] VITALS: BP 111/72; PULSE 98; RESP 20; TEMP 98.1; O2SAT 97
--- NOTE | 2023-03-23 04:00 | NUR ---
PT REPORTING A PAIN LEVEL OF 8/10 AND REQUESTING PERCOCET. ADMINISTERED PERCOCET 5/325 MG PO PRN PER MD ORDER. WILL CONTINUE MONITORING THE PATIENT.
[2023-03-23] MEDS: oxyCODONE/APAP 5/325 MG 1 TAB TAB PO PRN ×4 (04:04→22:23)
[2023-03-23 05:41] LABS: ALBUMIN 2.9 g/dL (3.4-5.0); ANION GAP 13.5 (8-16); CARBON DIOXIDE 24.4 mmol/L (21-32); CREATININE 0.7 mg/dL (0.6-1.3); MAGNESIUM 1.5 mg/dL (1.8-2.4); POTASSIUM 3.9 mmol/L (3.5-5.1)
[2023-03-23 05:54] LABS: BASOPHILS % (AUTO) 0.5 % (0.0-2.0); EOSINOPHILS % (AUTO) 1.2 % (0.0-4.0); HEMATOCRIT 32.9 % (36-48); LYMPHOCYTES # (AUTO) 0.7 K/uL (2.5-16.5); LYMPHOCYTES % (AUTO) 25.5 % (20.5-51.1); MEAN CORPUSCULAR HEMOGLOBIN 30 pg (27-31); MEAN CORPUSCULAR HGB CONC 33 g/dL (33-37); MEAN CORPUSCULAR VOLUME 89.9 fL (80-94); MONOCYTES # (AUTO) 0.1 K/uL (0.8-1.0); MONOCYTES % (AUTO) 4.5 % (1.7-9.3); NEUTROPHILS # (AUTO) 1.9 K/uL (1.8-7.7); NEUTROPHILS % (AUTO) 68.3 % (42.2-75.2); PLATELET COUNT (AUTO) 87 K/uL (140-450); RED BLOOD CELL COUNT(AUTO) 3.66 MIL/uL (4.20-5.40); RED CELL DISTRIBUTION WIDTH 14.6 % (11.6-13.7); WHITE BLOOD COUNT (AUTO) 2.7 K/uL (4.8-10.8)
--- NOTE | 2023-03-23 06:42 | NUR ---
NO ACUTE EVENTS OVERNIGHT. PATIENT STILL REPORTING SMALL AMOUNTS OF BLOOD IN URINE. WILL ENDORSE TO DAY SHIFT NURSE FOR CONTINUITY OF CARE.
[2023-03-23 08:00] VITALS: PULSE 87; RESP 19; O2SAT 99
[2023-03-23] MEDS: ESTROGENS CONJUGATED 25 MG INJ VIAL IV SCH (09:00)
[2023-03-23] MEDS: medroxyPROGESTERone 10 MG TAB PO SCH (09:39)
[2023-03-23 12:00] VITALS: BP 116/68; PULSE 78; RESP 18; TEMP 97.8; O2SAT 97
[2023-03-23 16:00] VITALS: TEMP 97.9
[2023-03-23] MEDS: ONDANSETRON 4 MG/2 ML VIAL IVP PRN ×2 (18:41→23:00)
--- NOTE | 2023-03-23 19:30 | NUR ---
RECEIVED PT ENDORSEMENT FROM DAY SHIFT NURSE. PT IS ON BED, AWAKE, ALERT AND ABLE TO VERBALIZED NEEDS. PT HAS PICC LINE, DOUBLE LUMENS, INTACT AND PATENT. PT IS ON SALINE LOCK. SKIN IS INTACT.
[2023-03-23 20:00] VITALS: BP 112/70; PULSE 87; RESP 18; TEMP 96.9; O2SAT 97
--- NOTE | 2023-03-23 20:00 | NUR ---
APPROACHED PT FOR VITAL SIGNS CHECK, PT STATED THAT SHE DOES NOT NEED ANYTHING NOW, SHE JUST WANT TO BE ALONE. EDUCATE PT FOR THE RISKS AND BENEFITS OF VITAL SIGNS, PT ALLOWED NURSE TO CHECK HER VITALS, SHE REFUSED FOR LUNGS AUSCULTATION.
--- NOTE | 2023-03-23 22:23 | NUR ---
PT COMPLAINTS OF SEVERE ABDOMINAL PAIN 05/14, PAIN MEDICATION PERCOCET 2 TABS ADMINISTERED ORDER.
--- NOTE | 2023-03-23 23:00 | NUR ---
FOUND PT VOMITING, ADMINISTER ZOFRAN ORDER.
--- NOTE | 2023-03-23 23:23 | NUR ---
REASSESSMENT OF PAIN MEDICATION PERCOCET - PT IS ASLEEP, NO FACIAL GRIMACING.
--- NOTE | 2023-03-24 | NUR ---
REASSESSMENT OF ZOFRAN FOR NAUSEA/VOMITING, PT VERBALIZED MEDICATION IS EFFECTIVE AND FEELING BETTER.
[2023-03-24] MEDS: MAG SULF 2000 MG/WATER PREMIX 50 ML IV PRN (00:31)
--- NOTE | 2023-03-24 00:31 | NUR ---
MAGNESIUM LEVEL RESULT 1.5, ADMINISTER MAGNESIUM SULFATE 2000MG VIA IV. PT IS AWAKE AND ALERT.
[2023-03-24 04:00] VITALS: BP 122/73; PULSE 85; RESP 18; TEMP 97.9; O2SAT 97
[2023-03-24] MEDS: MORPHINE SULFATE 4 MG/ML SYR IVP PRN ×2 (05:12→11:47)
--- NOTE | 2023-03-24 05:12 | NUR ---
PT COMPLAINTS OF SEVERE PAIN 9/10 ON ABDOMINAL AREA, PAIN MEDICATION MORPHINE 4MG ADMINISTERED ORDER VIA IV.
[2023-03-24] MEDS: ONDANSETRON 4 MG/2 ML VIAL IVP PRN ×2 (05:17→11:47)
--- NOTE | 2023-03-24 05:17 | NUR ---
PT COMPLAINTS OF HAVING NAUSEA, ZOFRAN IV PUSH ADMINISTERED ORDER.
[2023-03-24 05:29] LABS: BASOPHILS % (AUTO) 0.3 % (0.0-2.0); EOSINOPHILS % (AUTO) 0.3 % (0.0-4.0); HEMATOCRIT 33.6 % (36-48); HEMOGLOBIN 11.3 g/dL (12.0-16.0); LYMPHOCYTES # (AUTO) 0.5 K/uL (2.5-16.5); LYMPHOCYTES % (AUTO) 11.4 % (20.5-51.1); MEAN CORPUSCULAR HEMOGLOBIN 30 pg (27-31); MEAN CORPUSCULAR HGB CONC 34 g/dL (33-37); MONOCYTES # (AUTO) 0.3 K/uL (0.8-1.0); MONOCYTES % (AUTO) 6.4 % (1.7-9.3); NEUTROPHILS # (AUTO) 3.9 K/uL (1.8-7.7); NEUTROPHILS % (AUTO) 81.6 % (42.2-75.2); PLATELET COUNT (AUTO) 61 K/uL (140-450); RED BLOOD CELL COUNT(AUTO) 3.77 MIL/uL (4.20-5.40); RED CELL DISTRIBUTION WIDTH 14.7 % (11.6-13.7); WHITE BLOOD COUNT (AUTO) 4.8 K/uL (4.8-10.8)
--- NOTE | 2023-03-24 05:30 | NUR ---
REASSESSMENT OF PAIN, PT ASLEEP, NO FACIAL GRIMACING.
[2023-03-24 05:33] LABS: ALBUMIN 2.9 g/dL (3.4-5.0); ANION GAP 15.8 (8-16); CARBON DIOXIDE 22.3 mmol/L (21-32); CREATININE 0.6 mg/dL (0.6-1.3); MAGNESIUM 2.3 mg/dL (1.8-2.4); POTASSIUM 4.1 mmol/L (3.5-5.1)
--- NOTE | 2023-03-24 07:13 | NUR ---
PT IS ON STABLE CONDITION AND NO COMPLAINT OF PAIN. SAFETY MEASURES ARE IN PLACE, ENDORSE TO DAY SHIFT NURSE FOR CONTINUITY OF CARE.
--- NOTE | 2023-03-24 07:14 | NUR ---
RECEIVED PT FROM PRIVATE EQUITY ANALYST NURSE FOR CONTINUITY OF CARE. PT IS AWAKE, AOX4. ABLE TO VERBALIZE NEEDS. RESPIRATIONS EVEN AND UNLABORED ON RA. SKIN WARM AND DRY. PICC LINE DOUBLE LUMEN, SL. PT DENIES PAIN. NO COMPLAINTS OF NAUSEA/VOMITING. PT REPORTS NO BLEEDING. CALL LIGHT WITHIN REACH, ALL SAFETY PRECAUTIONS IN PLACE.
[2023-03-24 08:00] VITALS: PULSE 83; RESP 20; TEMP 96.9; O2SAT 99
--- NOTE | 2023-03-24 08:00 | NUR ---
Patient's Plan of Care was discussed and reviewed with PRODUCT ACCOUNTANT: Marcela
[2023-03-24] MEDS: medroxyPROGESTERone 10 MG TAB PO SCH (09:05)
--- NOTE | 2023-03-24 09:06 | NUR ---
SCHEDULED ORAL MEDICATION GIVEN. PT TOLERATING WELL.
[2023-03-24] MEDS: ESTROGENS CONJUGATED 25 MG INJ VIAL IV SCH (10:28)
[2023-03-24] MEDS ORDERED: ONDA2SOL45 PO ×2 (10:34→16:01)
[2023-03-24 13:42] VITALS: BP 113/71; PULSE 85; RESP 17; TEMP 96.9
--- NOTE | 2023-03-24 15:46 | NUR ---
PICC LINE REMOVED BY TEJINDER PEREZ.
== END 2023-03-24 16:05 | disposition home or self-care (01) | DRG 532 ==
LOC: MED 15:59 → MMU 20:24 → MTU 21:59
PROVIDERS: ADMIT Internal Medicine; ATTEND Internal Medicine
PROC: 02HV33Z Insertion of Infusion Device into Superior Vena Cava, Percutaneous Approach (ICD-10-PCS; principal; 2023-03-20)
PROC: B548ZZA Ultrasonography of Superior Vena Cava, Guidance (ICD-10-PCS; 2023-03-20)
DX: N93.9 Abnormal uterine and vaginal bleeding, unspecified (principal); E44.1 Mild protein-calorie malnutrition; D62 Acute posthemorrhagic anemia; N80.9 Endometriosis, unspecified; D72.819 Decreased white blood cell count, unspecified; Z20.822 Contact with and (suspected) exposure to COVID-19; Z98.891 History of uterine scar from previous surgery; Z88.8 Allergy status to other drugs, medicaments and biological substances; Z79.899 Other long term (current) drug therapy; Z68.26 Body mass index [BMI] 26.0-26.9, adult
CPT/HCPCS: 36415; 71045; 76830; 80048; 80053; 81001; 81003; 83735; 84702; 85025; 85610; 85730; 87040; 87081; 87086; 99285; J0696; J1410; J1885; J2270; J2405; J3475; J7060; Q0092

== ENCOUNTER 2023-07-07 05:33 | Day surgery (SDC) | payer OTHER ==
[~2023-07-07] VITALS: Ht 172.7 cm; Wt 79.8 kg
[~2023-07-07 05:33] MED LIST changes: -FENT50TD45 TD; -GABA400C PO; -HYDR2TAB6 PO
[2023-07-07 07:00] LABS: BASOPHILS # (AUTO) 0.1 K/uL (0.00-0.22); BASOPHILS % (AUTO) 2.9 % (0.0-2.0); EOSINOPHILS # (AUTO) 0.1 K/uL (0-0.4); EOSINOPHILS % (AUTO) 3.1 % (0.0-4.0); HEMATOCRIT 37.6 % (36-48); HEMOGLOBIN 11.8 g/dL (12.0-16.0); LYMPHOCYTES # (AUTO) 1.2 K/uL (2.5-16.5); LYMPHOCYTES % (AUTO) 54.5 % (20.5-51.1); MEAN CORPUSCULAR HEMOGLOBIN 25 pg (27-31); MEAN CORPUSCULAR HGB CONC 31 g/dL (33-37); MEAN CORPUSCULAR VOLUME 81.1 fL (80-94); MONOCYTES # (AUTO) 0.1 K/uL (0.8-1.0); MONOCYTES % (AUTO) 5.8 % (1.7-9.3); NEUTROPHILS # (AUTO) 0.8 K/uL (1.8-7.7); NEUTROPHILS % (AUTO) 33.7 % (42.2-75.2); PLATELET COUNT (AUTO) 216 K/uL (140-450); RED BLOOD CELL COUNT(AUTO) 4.64 MIL/uL (4.20-5.40); RED CELL DISTRIBUTION WIDTH 18.5 % (11.6-13.7); WHITE BLOOD COUNT (AUTO) 2.3 K/uL (4.8-10.8)
[2023-07-07 07:17] LABS: ALBUMIN 3.6 g/dL (3.4-5.0); ANION GAP 12.3 (8-16); CALCIUM 10.3 mg/dL (8.5-10.1); CARBON DIOXIDE 23.7 mmol/L (21-32); CREATININE 0.9 mg/dL (0.6-1.3); TOTAL BILIRUBIN 0.7 mg/dL (0.0-1.0); TOTAL PROTEIN, SERUM 7.9 g/dL (6.4-8.2)
[2023-07-07] MEDS ORDERED: BUPIVACAINE-MPF 0.25% 30 ML VIAL INJ ONE (07:34)
[2023-07-07] MEDS ORDERED: LIDOCAINE/EPI MPF 1%1:200000 30 ML VIAL INJ ONE (07:34)
[2023-07-07] MEDS ORDERED: KETOROLAC 30 MG/ML VIAL IVP SCH (07:45)
[2023-07-07] MEDS ORDERED: ACETAMINOPHEN 100 ML IV ONE (07:58)
[2023-07-07] MEDS ORDERED: SUCCINYLCHOLINE CHLORIDE 200 MG/10 ML VIAL IVP ONE ×2 (08:00→09:15)
[2023-07-07] MEDS ORDERED: DEXAMETHASONE 10 MG/ML VIAL ONE (08:00)
[2023-07-07] MEDS ORDERED: METOCLOPRAMIDE 10 MG/2 ML INJ VIAL ONE (08:00)
[2023-07-07] MEDS ORDERED: GLYCOPYRROLATE 0.2 MG/ML VIAL ONE ×2 (08:00→09:36)
[2023-07-07] MEDS ORDERED: ONDANSETRON 4 MG/2 ML VIAL ONE (08:00)
[2023-07-07] MEDS ORDERED: fentaNYL citrate 0.05 MG/ML - 50mL vial IV ONE (08:00)
[2023-07-07] MEDS ORDERED: PROPOFOL 200 MG/20 ML VIAL IV ONE ×3 (08:00→09:15)
[2023-07-07] MEDS ORDERED: hydrALAZINE 20 MG/ML VIAL ONE ×2 (08:00→09:19)
[2023-07-07] MEDS ORDERED: ceFAZolin 2,000 MG VIAL ONE (08:00)
[2023-07-07] MEDS ORDERED: KETOROLAC 30 MG/ML VIAL ONE (08:00)
[2023-07-07] MEDS ORDERED: ACETAMINOPHEN 10 MG/ML 100 ML IV ONE (08:00)
[2023-07-07] MEDS ORDERED: ROCURONIUM 50 MG/5 ML VIAL IV ONE ×2 (08:00→09:15)
[2023-07-07] MEDS ORDERED: SEVOFLURANE 250 ML BTL INH ONE (08:00)
[2023-07-07] MEDS ORDERED: fentaNYL citrate 0.05 MG/ML VIAL ONE ×2 (08:17→09:28)
[2023-07-07] MEDS ORDERED: PHENYLEPHRINE 10 MG/ML VIAL ONE (09:19)
[2023-07-07] MEDS ORDERED: SODIUM 10 ML ONE (09:19)
[2023-07-07] MEDS ORDERED: NEOSTIGMINE 1:1000 10 MG/10 ML VIAL ONE (09:36)
[2023-07-07] MEDS ORDERED: HYDROmorphone PFS 2 MG/ML SYR ONE (09:53)
[2023-07-07] MEDS: HYDROmorphone 1 MG/ML AMP IVP PRN ×4 (09:55→10:25)
[2023-07-07] MEDS ORDERED: ONDANSETRON 4 MG/2 ML VIAL IVP PRN (10:00)
[2023-07-07] MEDS ORDERED: LACTATED RINGERS 1,000 ML IV SCH (10:00)
[2023-07-07] MEDS ORDERED: ONDANSETRON 4 MG/2 ML VIAL IVP SCH (12:15)
[2023-07-07] MEDS ORDERED: HYDROcodone/APAP 10/325 MG 1 TAB TAB PO SCH (12:15)
[2023-07-07] MEDS ORDERED: oxyCODONE/APAP 5/325 MG 1 TAB TAB PO SCH (12:42)
== END 2023-07-07 13:35 | disposition home or self-care (01) ==
LOC: MDS 05:33 → MMU 05:39 → MDS 13:35
PROVIDERS: ATTEND Obstetrics & Gynecology
DX: N92.1 Excessive and frequent menstruation with irregular cycle (principal); N80.9 Endometriosis, unspecified; N94.6 Dysmenorrhea, unspecified; G89.18 Other acute postprocedural pain; R10.2 Pelvic and perineal pain; Z88.1 Allergy status to other antibiotic agents; Z88.8 Allergy status to other drugs, medicaments and biological substances; Z80.3 Family history of malignant neoplasm of breast; Z79.899 Other long term (current) drug therapy
CPT/HCPCS: 36415; 58558; 58662; 80053; 82374; 85025; 86886; 86900; 86901; J0330; J0360; J0690; J1100; J1170; J1885; J2001; J2370; J2405; J2704; J2710; J2765; J3010; J3490; J7060; J7120; J7030

== ENCOUNTER 2023-08-24 18:12 | Inpatient (IN) | payer OTHER ==
[~2023-08-24] VITALS: Ht 172.7 cm; Wt 71.7 kg
[2023-08-24 19:02] VITALS: BP 152/110; PULSE 105; RESP 22; TEMP 97.8; O2SAT 99
[2023-08-24] MEDS ORDERED: MORPHINE SULFATE 4 MG/ML SYR IVP ONE (20:50)
[2023-08-24] MEDS ORDERED: fentaNYL citrate 0.05 MG/ML VIAL IVP ONE (22:15)
[2023-08-24] MEDS ORDERED: ONDANSETRON 4 MG/2 ML VIAL ONE (22:21)
[2023-08-24 23:37] VITALS: O2SAT 98
[2023-08-25 00:02] LABS: BASOPHILS % (AUTO) 0.8 % (0.0-2.0); EOSINOPHILS % (AUTO) 0.3 % (0.0-4.0); HEMATOCRIT 30.6 % (36-48); HEMOGLOBIN 9.9 g/dL (12.0-16.0); LYMPHOCYTES # (AUTO) 1.6 K/uL (2.5-16.5); LYMPHOCYTES % (AUTO) 38.5 % (20.5-51.1); MEAN CORPUSCULAR HEMOGLOBIN 28 pg (27-31); MEAN CORPUSCULAR HGB CONC 32 g/dL (33-37); MONOCYTES # (AUTO) 0.2 K/uL (0.8-1.0); MONOCYTES % (AUTO) 5.9 % (1.7-9.3); NEUTROPHILS # (AUTO) 2.2 K/uL (1.8-7.7); NEUTROPHILS % (AUTO) 54.5 % (42.2-75.2); PLATELET COUNT (AUTO) 220 K/uL (140-450); RED CELL DISTRIBUTION WIDTH 19.1 % (11.6-13.7); WHITE BLOOD COUNT (AUTO) 4.1 K/uL (4.8-10.8)
[2023-08-25 00:10] LABS: ALBUMIN 3.4 g/dL (3.4-5.0); ANION GAP 18.3 (8-16); CALCIUM 9.3 mg/dL (8.5-10.1); CARBON DIOXIDE 22.5 mmol/L (21-32); CREATININE 0.7 mg/dL (0.6-1.3); POTASSIUM 3.8 mmol/L (3.5-5.1); TOTAL BILIRUBIN 1.7 mg/dL (0.0-1.0); TOTAL PROTEIN, SERUM 7.1 g/dL (6.4-8.2)
[2023-08-25] MEDS ORDERED: fentaNYL citrate 0.05 MG/ML VIAL IVP ONE (00:35)
[2023-08-25] MEDS ORDERED: HYDROcodone/APAP 5/325 MG 1 TAB TAB PO PRN (00:50)
[2023-08-25] MEDS ORDERED: KCL 20 MEQ IN 100 mL PREMIX 200 ML IV PRN (00:50)
[2023-08-25] MEDS ORDERED: ACETAMINOPHEN 325 MG TAB PO PRN (00:50)
[2023-08-25] MEDS ORDERED: MAGNESIUM OXIDE 400 MG TAB PO PRN (00:50)
[2023-08-25] MEDS ORDERED: MAG SULF 2000 MG/WATER PREMIX 50 ML IV PRN (00:50)
[2023-08-25] MEDS ORDERED: POTASSIUM CHLORIDE 10 MEQ TABER PO PRN (00:50)
[2023-08-25] MEDS ORDERED: ONDANSETRON 4 MG/2 ML VIAL IVP PRN (00:50)
[2023-08-25 01:50] VITALS: BP 143/101; PULSE 93; RESP 19; TEMP 98.2; O2SAT 100; O2SAT 93
[2023-08-25] MEDS ORDERED: HYDROmorphone 1 MG/ML AMP IVP PRN (02:35)
[2023-08-25 04:00] VITALS: BP 120/76; PULSE 105; RESP 16; TEMP 98.4; O2SAT 100
[2023-08-25 08:00] VITALS: BP 138/94; PULSE 68; PULSE 88; RESP 18; RESP 20; TEMP 97.3; O2SAT 98; O2SAT 99
[2023-08-25] MEDS: MORPHINE SULFATE 2 MG/ML SYR IVP PRN ×4 (08:40→22:15)
[2023-08-25] MEDS ORDERED: ESTROGENS CONJUGATED 25 MG INJ VIAL IV SCH (12:15)
[2023-08-25 12:31] LABS: HEMATOCRIT 29.8 % (36-48); HEMOGLOBIN 9.7 g/dL (12.0-16.0); LYMPHOCYTES # (AUTO) 1.1 K/uL (2.5-16.5); LYMPHOCYTES % (AUTO) 38.2 % (20.5-51.1); MEAN CORPUSCULAR HEMOGLOBIN 28 pg (27-31); MEAN CORPUSCULAR HGB CONC 33 g/dL (33-37); MEAN CORPUSCULAR VOLUME 84.2 fL (80-94); MONOCYTES # (AUTO) 0.2 K/uL (0.8-1.0); MONOCYTES % (AUTO) 6.1 % (1.7-9.3); NEUTROPHILS # (AUTO) 1.6 K/uL (1.8-7.7); NEUTROPHILS % (AUTO) 53.7 % (42.2-75.2); PLATELET COUNT (AUTO) 212 K/uL (140-450); RED BLOOD CELL COUNT(AUTO) 3.53 MIL/uL (4.20-5.40); RED CELL DISTRIBUTION WIDTH 19.3 % (11.6-13.7); WHITE BLOOD COUNT (AUTO) 2.9 K/uL (4.8-10.8)
[2023-08-25 16:00] VITALS: BP 135/87; PULSE 95; RESP 18; TEMP 98.5; O2SAT 100
[2023-08-25 20:00] VITALS: BP 114/72; PULSE 94; RESP 16; TEMP 98.7; O2SAT 100
[2023-08-25] MEDS: medroxyPROGESTERone 10 MG TAB PO SCH (21:10)
[2023-08-26] MEDS ORDERED: WATER STERILE 10 ML MC ONE (00:26)
[2023-08-26] MEDS: ESTROGENS CONJUGATED 25 MG INJ VIAL IV SCH ×3 (00:31→12:49)
[2023-08-26] MEDS: MORPHINE SULFATE 2 MG/ML SYR IVP PRN ×3 (02:57→13:33)
[2023-08-26 04:00] VITALS: BP 125/82; PULSE 90; RESP 16; TEMP 97; O2SAT 97
[2023-08-26 05:42] LABS: BASOPHILS % (AUTO) 0.4 % (0.0-2.0); EOSINOPHILS # (AUTO) 0.1 K/uL (0-0.4); EOSINOPHILS % (AUTO) 1.4 % (0.0-4.0); HEMATOCRIT 30.7 % (36-48); LYMPHOCYTES # (AUTO) 1.2 K/uL (2.5-16.5); LYMPHOCYTES % (AUTO) 24.2 % (20.5-51.1); MEAN CORPUSCULAR HEMOGLOBIN 28 pg (27-31); MEAN CORPUSCULAR HGB CONC 33 g/dL (33-37); MEAN CORPUSCULAR VOLUME 84.5 fL (80-94); MONOCYTES # (AUTO) 0.3 K/uL (0.8-1.0); MONOCYTES % (AUTO) 4.9 % (1.7-9.3); NEUTROPHILS # (AUTO) 3.6 K/uL (1.8-7.7); NEUTROPHILS % (AUTO) 69.1 % (42.2-75.2); PLATELET COUNT (AUTO) 207 K/uL (140-450); RED BLOOD CELL COUNT(AUTO) 3.63 MIL/uL (4.20-5.40); RED CELL DISTRIBUTION WIDTH 19.2 % (11.6-13.7); WHITE BLOOD COUNT (AUTO) 5.2 K/uL (4.8-10.8)
[2023-08-26 06:48] LABS: ALBUMIN 3.1 g/dL (3.4-5.0); ANION GAP 12.2 (8-16); CALCIUM 9.2 mg/dL (8.5-10.1); CARBON DIOXIDE 25.5 mmol/L (21-32); CREATININE 0.7 mg/dL (0.6-1.3); MAGNESIUM 1.5 mg/dL (1.8-2.4); POTASSIUM 3.7 mmol/L (3.5-5.1); TOTAL BILIRUBIN 1.1 mg/dL (0.0-1.0); TOTAL PROTEIN, SERUM 6.8 g/dL (6.4-8.2)
[2023-08-26 08:00] VITALS: BP 128/83; PULSE 84; RESP 18; TEMP 97.8; O2SAT 99
[2023-08-26] MEDS: medroxyPROGESTERone 10 MG TAB PO SCH (08:55)
[2023-08-26] MEDS ORDERED: MEDR10TA PO (16:32)
== END 2023-08-26 18:30 | disposition home or self-care (01) | DRG 532 ==
LOC: MED 18:12 → MMU 08-25 00:49 → MTU 08-25 01:11
PROVIDERS: ADMIT Hospitalist; ATTEND Hospitalist
DX: D25.9 Leiomyoma of uterus, unspecified (principal); R65.10 Systemic inflammatory response syndrome (SIRS) of non-infectious origin without acute organ dysfunction; N92.0 Excessive and frequent menstruation with regular cycle; Z88.8 Allergy status to other drugs, medicaments and biological substances; Z79.899 Other long term (current) drug therapy
CPT/HCPCS: 36415; 76830; 80053; 83735; 84702; 85025; 86886; 86900; 86901; 96374; 96375; 96376; 99291; J1170; J1410; J2270; J2405; J3010